=== PATIENT | female | born 1950 | race Caucasian/White ===

== ENCOUNTER 2017-11-13 12:29 | Emergency (ER) | payer OTHER ==
[~2017-11-13] VITALS: Ht 167.6 cm; Wt 78.9 kg
[~2017-11-13 12:29] MED LIST: GABAPENTIN 100100 MG PO; METFORMIN HCL500 MG PO; PRAVACHOL20 MG PO; PREDNISONE 20 M20 MG PO; QUINAPRIL 20 MG20 MG PO; TYLENOL325 MG PO; VENTOLIN HFA 1818 GM INH; ZPAK PO
[2017-11-13 13:19] LABS: URINE BILIRUBIN NEGATIVE (Negative); URINE BLOOD NEGATIVE (Negative); URINE CLARITY CLEAR; URINE COLOR YELLOW; URINE GLUCOSE-RANDOM NEGATIVE (Negative); URINE KETONES NEGATIVE (Negative); URINE LEUKOCYTES-REFLEX NEGATIVE (Negative); URINE NITRITE-REFLEX NEGATIVE (Negative); URINE PROTEIN NEGATIVE (Negative); URINE SPECIFIC GRAVITY <= 1.005 (1.005-1.030); URINE UROBILINOGEN 0.2 E.U./dl (0.2-1.0)
[2017-11-13 13:22] LABS: ABSOLUTE BASOPHILS 0.1 thou/uL (0.0-0.2); ABSOLUTE EOSINOPHILS 0.1 thou/uL (0.0-0.7); ABSOLUTE LYMPHOCYTES 2.3 thou/uL (0.8-5.3); ABSOLUTE MONOCYTES 0.5 thou/uL (0.0-1.2); ABSOLUTE NEUTROPHILS 5.8 thou/uL (1.6-8.1); BASOPHILS 0.7 %; EOSINOPHILS 1.6 %; HEMATOCRIT 37.7 % (37.0-47.0); HEMOGLOBIN 12.7 gm/dL (12.0-15.0); LYMPHOCYTES 25.7 %; MCH 31.8 pg (26.0-34.0); MCHC 33.7 g/dL (28.0-37.0); MCV 94.6 fL (80.0-100.0); MONOCYTES 6.2 %; NUCLEATED RBCS 0 /100WBC; PLATELET COUNT* 204 thou/uL (150-400); POLYS 65.8 %; RBC 3.99 mil/uL (4.20-5.00); RDW-CV 13.5 % (10.5-14.5); WBC 8.8 thou/uL (4.0-11.0)
[2017-11-13 13:28] LABS: CREATININE 0.8 mg/dL (0.6-1.3); POTASSIUM 3.3 mmol/L (3.5-5.1)
[2017-11-13 13:31] LABS: INFLUENZA A ANTIGEN None Detected (None Detect); INFLUENZA B ANTIGEN None Detected (None Detect)
[2017-11-13 13:33] LABS: ALBUMIN 3.6 g/dL (3.4-5.0); TOTAL BILIRUBIN 0.4 mg/dL (<0.1-1.0); TOTAL PROTEIN 6.9 g/dL (6.4-8.2)
[2017-11-13 14:31] LABS: TROPONIN-I LEVEL <0.06 ng/mL (<0.06)
[2017-11-13 14:32] LABS: AMP/METHAMP Negative (Negative); BARBITURATES Negative (Negative); BENZODIAZEPINES Negative (Negative); COCAINE Negative (Negative); METHADONE Negative (Negative); OPIATES Negative (Negative); PCP Negative (Negative); THC POSITIVE (Negative)
[2017-11-13 15:45] VITALS: BP 133/52
--- NOTE | 2017-11-14 13:36 | EKG ---
[place] [address] ELECTROCARDIOGRAM REPORT Name: VIRA OCASIO Room: [facility]#: [id number] Admission: 11/13/17 Attend Phys: Discharge: 11/13/17 Date of : 46 Report #: [id number] THIS REPORT FOR: //name// [facility] ED Test Date: 2017-11-13 Test Time: 13:30:09 Pat Name: VIRA OCASIO Department: Room: Gender: F Powder Carrier: Gerson KHAN : 1950 Requested By: Emily Velez Order Number: [id number] MD: Juan Johnston Measurements Intervals [place] Rate: 61 P: 39 [place]: 194 QRS: 6 QRSD: 93 T: 33 QT: 436 QTc: 440 Interpretive Statements Sinus rhythm Compared to ECG 02/10/2017 14:01:04 No significant changes Electronically Signed On 11-14-2017 13:36:04 PROPERTY INSPECTOR by Juan Johnston [email or web address] <ELECTRONICALLY SIGNED> By: Juan Johnston MD, [facility] 11/14/17 1336 1330 1330 Juan Johnston MD, FACC /EPI
== END 2017-11-13 15:48 | disposition home or self-care (01) ==
LOC: M.ERS 12:29
PROVIDERS: Nurse Practitioner
DX: D32.9 Benign neoplasm of meninges, unspecified (principal); J44.9 Chronic obstructive pulmonary disease, unspecified; E11.9 Type 2 diabetes mellitus without complications; M19.90 Unspecified osteoarthritis, unspecified site; F17.210 Nicotine dependence, cigarettes, uncomplicated; Z88.6 Allergy status to analgesic agent

== ENCOUNTER 2017-12-04 09:32 | Emergency (ER) | payer OTHER ==
[~2017-12-04] VITALS: Ht 167.6 cm; Wt 78.2 kg
[2017-12-04 10:14] LABS: ABSOLUTE EOSINOPHILS 0.1 thou/uL (0.0-0.7); ABSOLUTE MONOCYTES 0.5 thou/uL (0.0-1.2); ABSOLUTE NEUTROPHILS 2.9 thou/uL (1.6-8.1); EOSINOPHILS 1.2 %; HEMATOCRIT 40.2 % (37.0-47.0); HEMOGLOBIN 13.7 gm/dL (12.0-15.0); LYMPHOCYTES 21.1 %; MCH 31.6 pg (26.0-34.0); MCV 92.9 fL (80.0-100.0); MPV 8.5 fl. (7.2-11.1); NUCLEATED RBCS 0 /100WBC; PLATELET COUNT* 184 thou/uL (150-400); POLYS 64.7 %; RBC 4.33 mil/uL (4.20-5.00); RDW-CV 13.4 % (10.5-14.5); WBC 4.5 thou/uL (4.0-11.0)
[2017-12-04 10:21] LABS: CALCIUM 8.6 mg/dL (8.5-10.1); CREATININE 0.8 mg/dL (0.6-1.3); POTASSIUM 3.4 mmol/L (3.5-5.1)
[2017-12-04 10:25] LABS: ALBUMIN 3.6 g/dL (3.4-5.0); TOTAL BILIRUBIN 0.4 mg/dL (<0.1-1.0); TOTAL PROTEIN 7.1 g/dL (6.4-8.2)
[2017-12-04 10:50] LABS: URINE BILIRUBIN NEGATIVE (Negative); URINE BLOOD 1+ (Negative); URINE CLARITY CLEAR; URINE COLOR YELLOW; URINE GLUCOSE-RANDOM NEGATIVE (Negative); URINE KETONES NEGATIVE (Negative); URINE LEUKOCYTES-REFLEX NEGATIVE (Negative); URINE NITRITE-REFLEX NEGATIVE (Negative); URINE PROTEIN NEGATIVE (Negative); URINE UROBILINOGEN 0.2 E.U./dl (0.2-1.0)
[2017-12-04] MEDS ORDERED: ZOFRAN ODT4 MG PO ×2 (11:05→11:34)
[2017-12-04] MEDS ORDERED: KLOR-CON 1010 MEQ PO ×2 (11:05→11:34)
[2017-12-04 11:08] LABS: MUCUS 0-3 Light strn/LPF (None Seen); SQUAMOUS >10 Many /LPF (0-3)
[2017-12-04 11:09] LABS: AMORPHOUS URATES Few /LPF (None Seen); CASTS None Seen /LPF (None Seen); URINE RBC 3-10 Few /HPF (0-2); URINE WBC-REFLEX 0-5 Rare /HPF (0-5)
[2017-12-04 11:29] VITALS: BP 144/62
== END 2017-12-04 11:29 | disposition home or self-care (01) ==
LOC: M.ERS 09:32
PROVIDERS: Nurse Practitioner Psychiatric/Mental Health
DX: R19.7 Diarrhea, unspecified (principal); E87.6 Hypokalemia; R11.0 Nausea; R53.1 Weakness; J44.9 Chronic obstructive pulmonary disease, unspecified; E11.9 Type 2 diabetes mellitus without complications; M19.90 Unspecified osteoarthritis, unspecified site; I10 Essential (primary) hypertension; E78.00 Pure hypercholesterolemia, unspecified; Z88.8 Allergy status to other drugs, medicaments and biological substances

== ENCOUNTER 2018-01-12 08:20 | Emergency (ER) | payer OTHER ==
[~2018-01-12] VITALS: Ht 167.6 cm; Wt 78.9 kg
[~2018-01-12 08:20] MED LIST changes: +KLOR-CON 1010 MEQ PO; +ZOFRAN ODT4 MG PO
[2018-01-12 09:34] LABS: INFLUENZA A ANTIGEN None Detected (None Detect); INFLUENZA B ANTIGEN None Detected (None Detect)
[2018-01-12 09:35] LABS: ABSOLUTE BASOPHILS 0.1 thou/uL (0.0-0.2); ABSOLUTE EOSINOPHILS 0.1 thou/uL (0.0-0.7); ABSOLUTE LYMPHOCYTES 1.5 thou/uL (0.8-5.3); ABSOLUTE MONOCYTES 0.5 thou/uL (0.0-1.2); ABSOLUTE NEUTROPHILS 10.5 thou/uL (1.6-8.1); BASOPHILS 0.8 %; EOSINOPHILS 0.7 %; HEMATOCRIT 40.5 % (37.0-47.0); HEMOGLOBIN 13.7 gm/dL (12.0-15.0); LYMPHOCYTES 11.5 %; MCH 30.8 pg (26.0-34.0); MCHC 33.8 g/dL (28.0-37.0); MCV 91.2 fL (80.0-100.0); MONOCYTES 4.2 %; MPV 8.5 fl. (7.2-11.1); NUCLEATED RBCS 0 /100WBC; PLATELET COUNT* 230 thou/uL (150-400); POLYS 82.8 %; RBC 4.44 mil/uL (4.20-5.00); RDW-CV 13.6 % (10.5-14.5); WBC 12.7 thou/uL (4.0-11.0)
[2018-01-12 09:43] LABS: CALCIUM 9.1 mg/dL (8.5-10.1); CREATININE 0.8 mg/dL (0.6-1.3); POTASSIUM 3.8 mmol/L (3.5-5.1)
[2018-01-12 09:47] LABS: ALBUMIN 3.4 g/dL (3.4-5.0); TOTAL BILIRUBIN 0.7 mg/dL (<0.1-1.0); TOTAL PROTEIN 7.1 g/dL (6.4-8.2)
[2018-01-12] MEDS ORDERED: PREDNISONE50 MG PO (10:00)
[2018-01-12] MEDS ORDERED: PROAIR HFA8.5 GM PO (10:00)
[2018-01-12] MEDS ORDERED: AMOXICILLIN875 MG PO (10:00)
[2018-01-12 10:12] VITALS: BP 160/63
== END 2018-01-12 10:13 | disposition home or self-care (01) ==
LOC: M.ERS 08:20
PROVIDERS: Personal Emergency Response Attendant
DX: J18.9 Pneumonia, unspecified organism (principal); J44.9 Chronic obstructive pulmonary disease, unspecified; E11.9 Type 2 diabetes mellitus without complications; M19.90 Unspecified osteoarthritis, unspecified site; I10 Essential (primary) hypertension; E78.00 Pure hypercholesterolemia, unspecified; F17.210 Nicotine dependence, cigarettes, uncomplicated; Z88.6 Allergy status to analgesic agent

== ENCOUNTER 2018-03-16 11:04 | Emergency (ER) | payer OTHER ==
[~2018-03-16] VITALS: Ht 167.6 cm; Wt 74.4 kg
[~2018-03-16 11:04] MED LIST changes: +AMOXICILLIN875 MG PO; +PREDNISONE50 MG PO; +PROAIR HFA8.5 GM PO
[2018-03-16 11:48] LABS: ABSOLUTE EOSINOPHILS 0.1 thou/uL (0.0-0.7); ABSOLUTE LYMPHOCYTES 2.1 thou/uL (0.8-5.3); ABSOLUTE MONOCYTES 0.5 thou/uL (0.0-1.2); ABSOLUTE NEUTROPHILS 6.1 thou/uL (1.6-8.1); BASOPHILS 0.4 %; EOSINOPHILS 1.7 %; HEMATOCRIT 39.7 % (37.0-47.0); HEMOGLOBIN 13.5 gm/dL (12.0-15.0); LYMPHOCYTES 23.8 %; MCV 91.4 fL (80.0-100.0); MONOCYTES 5.9 %; MPV 8.7 fl. (7.2-11.1); NUCLEATED RBCS 0 /100WBC; PLATELET COUNT* 213 thou/uL (150-400); POLYS 68.2 %; RBC 4.35 mil/uL (4.20-5.00); RDW-CV 13.3 % (10.5-14.5); WBC 8.9 thou/uL (4.0-11.0)
[2018-03-16 12:01] LABS: ANION GAP 11 mmol/L (7-16); BUN 18 mg/dL (7-18); CALCIUM 9.4 mg/dL (8.5-10.1); CHLORIDE 106 mmol/L (98-107); CO2 24 mmol/L (21-32); CREATININE 0.9 mg/dL (0.6-1.3); GLUCOSE 166 mg/dL (70-99); POTASSIUM 3.2 mmol/L (3.5-5.1); SODIUM 141 mmol/L (136-145)
[2018-03-16 12:08] LABS: ALBUMIN 3.8 g/dL (3.4-5.0); ALKALINE PHOSPHATASE 71 U/L (46-116); SGOT 17 U/L (15-37); SGPT 18 U/L (30-65); TOTAL BILIRUBIN 0.7 mg/dL (<0.1-1.0); TROPONIN-I LEVEL <0.06 ng/mL (<0.06)
[2018-03-16] MEDS ORDERED: ALBUTEROL2.5 MG/31 INH (12:56)
[2018-03-16] MEDS ORDERED: CEFUROXIME500 MG PO (12:56)
[2018-03-16] MEDS ORDERED: PREDNISONE 20 M20 M1 PO (12:56)
[2018-03-16 13:09] VITALS: BP 133/68
--- NOTE | 2018-03-18 09:37 | EKG ---
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: HAY : 1950 Requested By: Coleen Gonzales Order Number: [id number] MD: Kwesi Lieberman Measurements Intervals [place] Rate: 58 P: 16 [place]: 192 QRS: 49 QRSD: 108 T: 1 QT: 441 QTc: 434 Interpretive Statements Sinus rhythm Borderline low voltage, extremity leads septal infarct, old Compared to ECG 11/13/2017 13:30:09 Myocardial infarct finding now present Electronically Signed On 03-18-2018 9:37:32 CDT by Kwesi Lieberman [email or web address] <ELECTRONICALLY SIGNED> By: Kwesi Lieberman MD, [facility] 03/18/18 0937 112 26 Kwesi Lieberman MD, [facility] /EPI
== END 2018-03-16 13:09 | disposition home or self-care (01) ==
LOC: M.ERS 11:04
PROVIDERS: Nurse Practitioner Family
DX: J42 Unspecified chronic bronchitis (principal); E11.9 Type 2 diabetes mellitus without complications; M19.90 Unspecified osteoarthritis, unspecified site; I10 Essential (primary) hypertension; E78.00 Pure hypercholesterolemia, unspecified; F17.210 Nicotine dependence, cigarettes, uncomplicated; Z88.6 Allergy status to analgesic agent

== ENCOUNTER 2018-05-22 10:28 | Emergency (ER) | payer OTHER ==
[~2018-05-22] VITALS: Ht 167.6 cm; Wt 77.1 kg
[~2018-05-22 10:28] MED LIST changes: +ALBUTEROL2.5 MG/31 INH; +CEFUROXIME500 MG PO; +PREDNISONE 20 M20 M1 PO
[2018-05-22] MEDS ORDERED: CELEXA10 MG PO (10:31)
[2018-05-22 10:56] LABS: ABSOLUTE EOSINOPHILS 0.1 thou/uL (0.0-0.7); ABSOLUTE LYMPHOCYTES 1.7 thou/uL (0.8-5.3); ABSOLUTE MONOCYTES 0.4 thou/uL (0.0-1.2); ABSOLUTE NEUTROPHILS 4.9 thou/uL (1.6-8.1); BASOPHILS 0.5 %; EOSINOPHILS 1.5 %; HEMATOCRIT 37.6 % (37.0-47.0); HEMOGLOBIN 12.9 gm/dL (12.0-15.0); LYMPHOCYTES 23.8 %; MCH 32.2 pg (26.0-34.0); MCHC 34.4 g/dL (28.0-37.0); MCV 93.7 fL (80.0-100.0); MONOCYTES 6.3 %; MPV 8.7 fl. (7.2-11.1); NUCLEATED RBCS 0 /100WBC; PLATELET COUNT* 187 thou/uL (150-400); POLYS 67.9 %; RBC 4.01 mil/uL (4.20-5.00); RDW-CV 13.3 % (10.5-14.5); WBC 7.2 thou/uL (4.0-11.0)
[2018-05-22 11:02] LABS: ANION GAP 9 mmol/L (7-16); BUN 13 mg/dL (7-18); CALCIUM 8.4 mg/dL (8.5-10.1); CHLORIDE 108 mmol/L (98-107); CO2 22 mmol/L (21-32); CREATININE 0.8 mg/dL (0.6-1.3); GLUCOSE 134 mg/dL (70-99); POTASSIUM 3.5 mmol/L (3.5-5.1); SODIUM 139 mmol/L (136-145)
[2018-05-22 11:08] LABS: ALKALINE PHOSPHATASE 65 U/L (46-116); LIPASE 158 U/L (73-393); SGOT 16 U/L (15-37); SGPT 14 U/L (30-65); TOTAL BILIRUBIN 0.7 mg/dL (<0.1-1.0); TOTAL PROTEIN 6.1 g/dL (6.4-8.2); TROPONIN-I LEVEL <0.06 ng/mL (<0.06)
[2018-05-22 12:15] LABS: URINE BILIRUBIN NEGATIVE (Negative); URINE BLOOD 1+ (Negative); URINE CLARITY CLEAR; URINE COLOR YELLOW; URINE GLUCOSE-RANDOM NEGATIVE (Negative); URINE KETONES NEGATIVE (Negative); URINE LEUKOCYTES-REFLEX NEGATIVE (Negative); URINE NITRITE-REFLEX NEGATIVE (Negative); URINE PROTEIN NEGATIVE (Negative); URINE UROBILINOGEN 0.2 E.U./dl (0.2-1.0)
[2018-05-22] MEDS ORDERED: ZOFRAN4 MG PO (12:21)
[2018-05-22 12:25] LABS: CASTS None Seen /LPF (None Seen); CRYSTALS None Seen /LPF (None Seen); MUCUS 4-6 Moderate strn/LPF (None Seen); SQUAMOUS >10 Many /LPF (0-3); URINE RBC 0-2 Rare /HPF (0-2); URINE WBC-REFLEX 0-5 Rare /HPF (0-5)
[2018-05-22 12:35] VITALS: BP 143/59
--- NOTE | 2018-05-22 15:03 | EKG ---
[place] [address] ELECTROCARDIOGRAM REPORT Name: VIRA OCASIO Room: 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: Gerson KHAN : 1950 Requested By: Coleen Gonzales Order Number: [id number] MD: Kwesi Lieberman Measurements Intervals [place] Rate: 56 P: 16 [place]: 192 QRS: 36 QRSD: 97 T: 7 QT: 449 QTc: 434 Interpretive Statements Sinus bradycardia Anterior infarct, old Compared to ECG 03/16/2018 11:27:24 No significant changes Electronically Signed On 05-22-2018 15:02:59 CDT by Kwesi Lieberman [email or web address] <ELECTRONICALLY SIGNED> By: Kwesi Lieberman MD, [facility] 05/22/18 1502 1033 1033 Kwesi Lieberman MD, FAC /EPI
== END 2018-05-22 12:36 | disposition home or self-care (01) ==
LOC: M.ERS 10:28
PROVIDERS: Nurse Practitioner Family
DX: J44.9 Chronic obstructive pulmonary disease, unspecified (principal); R19.7 Diarrhea, unspecified; R11.2 Nausea with vomiting, unspecified; E11.9 Type 2 diabetes mellitus without complications; M19.90 Unspecified osteoarthritis, unspecified site; I10 Essential (primary) hypertension; E78.00 Pure hypercholesterolemia, unspecified; F17.210 Nicotine dependence, cigarettes, uncomplicated; Z88.6 Allergy status to analgesic agent

== ENCOUNTER 2018-07-30 12:21 | Emergency (ER) | payer OTHER ==
[~2018-07-30] VITALS: Ht 167.6 cm; Wt 74.4 kg
[~2018-07-30 12:21] MED LIST changes: +CELEXA10 MG PO; +ZOFRAN4 MG PO
[2018-07-30 13:19] LABS: URINE BILIRUBIN NEGATIVE (Negative); URINE BLOOD TRACE (Negative); URINE CLARITY CLEAR; URINE COLOR YELLOW; URINE GLUCOSE-RANDOM NEGATIVE (Negative); URINE KETONES NEGATIVE (Negative); URINE LEUKOCYTES NEGATIVE (Negative); URINE NITRITE NEGATIVE (Negative); URINE PROTEIN NEGATIVE (Negative); URINE SPECIFIC GRAVITY <= 1.005 (1.005-1.030); URINE UROBILINOGEN 0.2 E.U./dl (0.2-1.0)
[2018-07-30 13:26] LABS: ABSOLUTE EOSINOPHILS 0.2 thou/uL (0.0-0.7); ABSOLUTE LYMPHOCYTES 1.8 thou/uL (0.8-5.3); ABSOLUTE MONOCYTES 0.5 thou/uL (0.0-1.2); ABSOLUTE NEUTROPHILS 4.5 thou/uL (1.6-8.1); BASOPHILS 0.7 %; EOSINOPHILS 3.3 %; HEMOGLOBIN 12.9 gm/dL (12.0-15.0); LYMPHOCYTES 25.3 %; MCH 31.9 pg (26.0-34.0); MCHC 33.9 g/dL (28.0-37.0); MONOCYTES 7.3 %; MPV 8.6 fl. (7.2-11.1); NUCLEATED RBCS 0 /100WBC; PLATELET COUNT* 208 thou/uL (150-400); POLYS 63.4 %; RBC 4.04 mil/uL (4.20-5.00); RDW-CV 13.1 % (10.5-14.5); WBC 7.1 thou/uL (4.0-11.0)
[2018-07-30 13:30] LABS: AMP/METHAMP Negative (Negative); BARBITURATES Negative (Negative); BENZODIAZEPINES Negative (Negative); COCAINE Negative (Negative); METHADONE Negative (Negative); OPIATES Negative (Negative); PCP Negative (Negative); THC POSITIVE (Negative)
[2018-07-30 13:35] LABS: ANION GAP 8 mmol/L (7-16); BUN 14 mg/dL (7-18); CALCIUM 9.2 mg/dL (8.5-10.1); CHLORIDE 107 mmol/L (98-107); CO2 27 mmol/L (21-32); CREATININE 0.9 mg/dL (0.6-1.3); GLUCOSE 104 mg/dL (70-99); POTASSIUM 3.4 mmol/L (3.5-5.1); SODIUM 142 mmol/L (136-145)
[2018-07-30 13:42] LABS: ALBUMIN 3.6 g/dL (3.4-5.0); ALKALINE PHOSPHATASE 67 U/L (46-116); LIPASE 144 U/L (73-393); SGOT 18 U/L (15-37); SGPT 20 U/L (30-65); TOTAL BILIRUBIN 0.5 mg/dL (<0.1-1.0); TOTAL PROTEIN 6.8 g/dL (6.4-8.2); TROPONIN-I LEVEL <0.06 ng/mL (<0.06)
[2018-07-30] MEDS ORDERED: PHENERGAN 25 MG25 M1 PO (14:09)
--- NOTE | 2018-07-30 14:22 | EKG ---
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
[2018-07-30 14:36] VITALS: BP 147/61
== END 2018-07-30 14:36 | disposition home or self-care (01) ==
LOC: M.ERS 12:21
PROVIDERS: Nurse Practitioner Family
DX: R53.1 Weakness (principal); R11.2 Nausea with vomiting, unspecified; R42 Dizziness and giddiness; E11.9 Type 2 diabetes mellitus without complications; M19.90 Unspecified osteoarthritis, unspecified site; I10 Essential (primary) hypertension; E78.00 Pure hypercholesterolemia, unspecified; J44.9 Chronic obstructive pulmonary disease, unspecified; F17.210 Nicotine dependence, cigarettes, uncomplicated; Z88.6 Allergy status to analgesic agent; Z79.899 Other long term (current) drug therapy

== ENCOUNTER → 2019-02-16 | Outpatient (CLI) | payer OTHER ==
[~2019-02-16] MED LIST changes: +PHENERGAN 25 MG25 M1 PO
== END ==
LOC: M.ULTRA 12:00
DX: I80.02 Phlebitis and thrombophlebitis of superficial vessels of left lower extremity (principal)

== ENCOUNTER → 2019-03-20 | Outpatient (CLI) | payer OTHER | LOC: M.ULTRA 13:30 | DX: M79.661 Pain in right lower leg (principal); M79.662 Pain in left lower leg; R60.0 Localized edema ==

== ENCOUNTER 2020-07-25 23:22 | Inpatient (IN) | payer OTHER ==
[~2020-07-25] VITALS: Ht 167.6 cm; Wt 78.3 kg
--- NOTE | ~2020-07-25 | PROC ---
[facility] [address] [place] [address] PROCEDURE REPORT Name: VIRA OCASIO Room: [address] IN ..#: [id number] Admission: 07/26/20 Attend Phys: Surinder Rowan MD Discharge: Date of : 46 Report #: [id number] THIS REPORT FOR: //name// cc: Nely Christiansen MD, Katrina MD ~ THIS REPORT FOR: //name// For GI report, please see the Provation report in Perceptive 7 content. By: 1324Medical Records Staff LARRY /ALMA
[2020-07-25 23:23] VITALS: BP 155/71
[2020-07-25 23:48] LABS: ABSOLUTE BASOPHILS 0.1 thou/uL (0.0-0.2); ABSOLUTE EOSINOPHILS 0.2 thou/uL (0.0-0.7); ABSOLUTE MONOCYTES 0.8 thou/uL (0.0-1.2); ABSOLUTE NEUTROPHILS 7.5 thou/uL (1.6-8.1); BASOPHILS 0.9 %; EOSINOPHILS 1.4 %; HEMATOCRIT 22.5 % (37.0-47.0); HEMOGLOBIN 7.7 gm/dL (12.0-15.0); LYMPHOCYTES 26.1 %; MCHC 34.2 g/dL (28.0-37.0); MCV 93.6 fL (80.0-100.0); MONOCYTES 6.9 %; MPV 7.8 fl. (7.2-11.1); NUCLEATED RBCS 0 /100WBC; PLATELET COUNT* 254 thou/uL (150-400); POLYS 64.7 %; WBC 11.6 thou/uL (4.0-11.0)
[2020-07-25 23:51] LABS: POTASSIUM 4.1 mmol/L (3.5-5.1)
[2020-07-25 23:52] LABS: APTT 24.5 Seconds (25.0-31.3); INR 1.1; PROTIME 11.3 Seconds (9.20-11.50)
[2020-07-26] VITALS (8 sets, daily range): BP systolic 100–140; BP diastolic 42–65
[2020-07-26 00:02] LABS: ALBUMIN 2.8 g/dL (3.4-5.0); TOTAL BILIRUBIN 0.3 mg/dL (<0.1-1.0); TOTAL PROTEIN 5.1 g/dL (6.4-8.2)
[2020-07-26 02:27] LABS: HEMATOCRIT 20.1 % (37.0-47.0)
[2020-07-26 02:28] LABS: HEMOGLOBIN 6.8 gm/dL (12.0-15.0)
[2020-07-26] MEDS ORDERED: CELEXA 20 MG TA20 MG PO (05:35)
[2020-07-26] MEDS ORDERED: POTASSIUM GLUCO99 M2 PO (05:36)
[2020-07-26] MEDS ORDERED: CALCIUM + VITA1 EACH PO (05:36)
[2020-07-26] MEDS ORDERED: VITAMIN B (05:37)
[2020-07-26 07:17] LABS: HEMATOCRIT 24.5 % (37.0-47.0); HEMOGLOBIN 8.5 gm/dL (12.0-15.0)
--- NOTE | 2020-07-26 09:42 | EKG ---
[place] [address] ELECTROCARDIOGRAM REPORT Name: VIRA OCASIO Room: [address] ADM IN M.R.#: [id number] Admission: 07/26/20 Attend Phys: uSrinder Rowan, Discharge: Date of : 46 Date of Service: 07/26/20 0008 Report #: [id number] THIS REPORT FOR: //name// [facility] ED Test Date: 2020-07-26 Test Time: 00:08:23 Pat Name: VIRA OCASIO Department: Room: [address] Gender: F Service Bar Cashier: NICKOLAS : 1950 Requested By: Bubba Chan Order Number: [id number] MD: Kwesi Lieberman Measurements Intervals [place] Rate: 91 P: 85 CT: 172 QRS: 50 QRSD: 92 T: 61 QT: 366 QTc: 451 Interpretive Statements Sinus rhythm Low voltage, extremity leads Minimal ST depression, lateral leads Compared to ECG 07/30/2018 13:10:42 Low QRS voltage now present Sinus bradycardia no longer present Myocardial infarct finding no longer present Electronically Signed On 07-26-2020 9:42:33 CDT by Kwesi Lieberman [email or web address] <ELECTRONICALLY SIGNED> By: Kwesi Lieberman MD, FACC 07/26/20 0942 Kwesi Lieberman MD, FACC /EPI
[2020-07-26 18:07] LABS: ABSOLUTE MONOCYTES 1.3 thou/uL (0.0-1.2); ABSOLUTE NEUTROPHILS 13.9 thou/uL (1.6-8.1); BASOPHILS 0.1 %; HEMATOCRIT 18.5 % (37.0-47.0); LYMPHOCYTES 11.8 %; MCH 32.2 pg (26.0-34.0); MCHC 34.6 g/dL (28.0-37.0); MCV 93.1 fL (80.0-100.0); MONOCYTES 7.7 %; MPV 7.8 fl. (7.2-11.1); NUCLEATED RBCS 0 /100WBC; PLATELET COUNT* 201 thou/uL (150-400); POLYS 80.4 %; RBC 1.99 mil/uL (4.20-5.00); RDW-CV 13.6 % (10.5-14.5); WBC 17.3 thou/uL (4.0-11.0)
[2020-07-26 18:08] LABS: HEMOGLOBIN 6.4 gm/dL (12.0-15.0)
[2020-07-26 18:13] LABS: CALCIUM 8.3 mg/dL (8.5-10.1); CREATININE 1.1 mg/dL (0.6-1.3); POTASSIUM 4.1 mmol/L (3.5-5.1)
[2020-07-27] VITALS (7 sets, daily range): BP systolic 96–122; BP diastolic 39–74
[2020-07-27 02:19] LABS: HEMATOCRIT 23.4 % (37.0-47.0); HEMOGLOBIN 8.1 gm/dL (12.0-15.0)
[2020-07-27 02:25] LABS: ABSOLUTE BASOPHILS 0.1 thou/uL (0.0-0.2); ABSOLUTE LYMPHOCYTES 4.2 thou/uL (0.8-5.3); ABSOLUTE MONOCYTES 1.4 thou/uL (0.0-1.2); ABSOLUTE NEUTROPHILS 12.2 thou/uL (1.6-8.1); BASOPHILS 0.6 %; EOSINOPHILS 0.2 %; HEMATOCRIT 23.3 % (37.0-47.0); HEMOGLOBIN 8.1 gm/dL (12.0-15.0); LYMPHOCYTES 23.5 %; MCH 31.9 pg (26.0-34.0); MCHC 34.6 g/dL (28.0-37.0); MONOCYTES 7.7 %; MPV 8.1 fl. (7.2-11.1); NUCLEATED RBCS 0 /100WBC; PLATELET COUNT* 199 thou/uL (150-400); RBC 2.53 mil/uL (4.20-5.00)
[2020-07-27 02:28] LABS: CALCIUM 8.6 mg/dL (8.5-10.1); MAGNESIUM 1.7 mg/dL (1.8-2.4); POTASSIUM 4.1 mmol/L (3.5-5.1)
[2020-07-27 14:30] LABS: HEMOGLOBIN 6.8 gm/dL (12.0-15.0)
[2020-07-27] MEDS ORDERED: CARAFATE 1 GM TA1 G1 PO (16:43)
[2020-07-27] MEDS ORDERED: PROTONIX40 M2 PO (16:43)
[2020-07-27 22:45] LABS: HEMATOCRIT 24.6 % (37.0-47.0); HEMOGLOBIN 8.5 gm/dL (12.0-15.0)
[2020-07-28] VITALS: BP 104/50
[2020-07-28 07:50] VITALS: BP 133/51
[2020-07-28 08:57] LABS: ABSOLUTE BASOPHILS 0.1 thou/uL (0.0-0.2); ABSOLUTE EOSINOPHILS 0.2 thou/uL (0.0-0.7); ABSOLUTE LYMPHOCYTES 3.2 thou/uL (0.8-5.3); ABSOLUTE MONOCYTES 0.7 thou/uL (0.0-1.2); ABSOLUTE NEUTROPHILS 5.2 thou/uL (1.6-8.1); BASOPHILS 1.2 %; EOSINOPHILS 2.5 %; HEMATOCRIT 24.8 % (37.0-47.0); HEMOGLOBIN 8.8 gm/dL (12.0-15.0); LYMPHOCYTES 33.9 %; MCH 32.4 pg (26.0-34.0); MCHC 35.5 g/dL (28.0-37.0); MCV 91.3 fL (80.0-100.0); MONOCYTES 7.5 %; MPV 8.1 fl. (7.2-11.1); NUCLEATED RBCS 0 /100WBC; PLATELET COUNT* 182 thou/uL (150-400); POLYS 54.9 %; RBC 2.72 mil/uL (4.20-5.00); RDW-CV 14.9 % (10.5-14.5); WBC 9.5 thou/uL (4.0-11.0)
[2020-07-28 09:18] LABS: CALCIUM 8.3 mg/dL (8.5-10.1); CREATININE 0.8 mg/dL (0.6-1.3); POTASSIUM 3.8 mmol/L (3.5-5.1)
[2020-07-28 12:08] VITALS: BP 122/57
--- NOTE | 2020-07-28 15:07 | PATH ---
[address] [address] PATHOLOGY RPT PROCEDURE Name: MARILOU LASSITER Room: [address] IN .R.#: [id number] Admission: 07/26/20 Date of : 46 Discharge: Report #: [id number] Path Case #: [id number] [facility] Accession Number: [id number] . 01 Material submitted: . stomach - ANTRAL BIOPSY FOR H-PYLORI AND DUODENAL ULCER . 01 Clinician provided ICD-10: K92.2 . 01 Clinical history: . GI BLEED, ANEMIA . 02 Diagnosis: Antral biopsy: - Mild nonspecific chronic antral gastritis, negative for Helicobacter pylori organisms, granulomas and dysplasia. . (AGA:[facility]; 07/28/2020) [facility] 07/28/2020 1138 Local . 02 Comment: H. pylori immuno. . (AGA:[facility]; 07/28/2020) . 02 Electronically signed: . Temo Cross MD, Pathologist NPI- [id number] . 01 Gross description: . The specimen is received in formalin, labeled "Marilou Lassiter, antral biopsy for H. pylori and duodenal ulcer". Received is a segment of pale de oliveira soft tissue measuring 0.4 cm in maximum dimensions. The specimen is submitted entirely in cassette A1. ([facility]; 07/27/2020) QAC/QAC 07/27/2020 1537 Local . 02 Pathologist provided ICD-10: K29.50 . 02 CPT . 788146, C27297 Specimen Comment: A courtesy copy of this report has been sent to [phone] Specimen Comment: [phone] Specimen Comment: Report sent to DR COKER / DR AGRAWAL Performed at: [address] [place] [address] PATHOLOGY RPT PROCEDURE Name: AMARJITMARILOU Stefany Room: [address]#: [id number] Admission: 07/26/20 Date of : 46 Discharge: Report #: [id number] Path Case #: [id number] [facility] [address] [id number] MD Amilcar Xiong MD Phone: [phone] Performed at: [address] , [place], [place] [id number] MD Temo Cross MD Phone: [phone]
[2020-07-28 17:25] VITALS: BP 136/62
[2020-07-28 20:00] VITALS: BP 112/64
[2020-07-29] VITALS: BP 112/46
[2020-07-29 04:00] VITALS: BP 121/59
[2020-07-29 05:11] LABS: HEMATOCRIT 26.2 % (37.0-47.0); HEMOGLOBIN 9.2 gm/dL (12.0-15.0); MCH 32.4 pg (26.0-34.0); MCHC 35.2 g/dL (28.0-37.0); MCV 92.1 fL (80.0-100.0); MPV 8.2 fl. (7.2-11.1); RBC 2.85 mil/uL (4.20-5.00); RDW-CV 14.9 % (10.5-14.5); WBC 10.6 thou/uL (4.0-11.0)
[2020-07-29 05:45] LABS: CALCIUM 8.8 mg/dL (8.5-10.1); CREATININE 0.9 mg/dL (0.6-1.3); POTASSIUM 3.5 mmol/L (3.5-5.1)
[2020-07-29 08:00] VITALS: BP 133/65
[2020-07-29] MEDS ORDERED: PROTONIX40 M2 PO (08:25)
[2020-07-29] MEDS ORDERED: CARAFATE 11 GM/10 M1 PO (08:25)
[2020-07-29 09:33] VITALS: BP 133/65
[2020-07-29 10:43] VITALS: BP 133/65
== END 2020-07-29 10:40 | disposition home or self-care (01) | DRG 378 ==
LOC: M.ERS 23:22 → M.2W 07-26 00:57 → M.TBA-ER 07-26 00:57 → M.2W 07-26 02:03
PROVIDERS: Family Medicine; Internal Medicine; Internal Medicine Gastroenterology; Nurse Practitioner Adult Health; ADMIT Internal Medicine; ATTEND Internal Medicine
PROC: 30233N1 Transfusion of Nonautologous Red Blood Cells into Peripheral Vein, Percutaneous Approach (ICD-10-PCS; principal; 2020-07-26)
PROC: 0D598ZZ Destruction of Duodenum, Via Natural or Artificial Opening Endoscopic (ICD-10-PCS; principal; 2020-07-26)
PROC: 0DB78ZX Excision of Stomach, Pylorus, Via Natural or Artificial Opening Endoscopic, Diagnostic (ICD-10-PCS; principal; 2020-07-26)
DX: K26.4 Chronic or unspecified duodenal ulcer with hemorrhage (principal); E44.0 Moderate protein-calorie malnutrition; J44.1 Chronic obstructive pulmonary disease with (acute) exacerbation; Z60.2 Problems related to living alone; K92.1 Melena; Z20.828 Contact with and (suspected) exposure to other viral communicable diseases; E11.9 Type 2 diabetes mellitus without complications; M19.90 Unspecified osteoarthritis, unspecified site; I10 Essential (primary) hypertension; D64.9 Anemia, unspecified; K29.50 Unspecified chronic gastritis without bleeding; F17.210 Nicotine dependence, cigarettes, uncomplicated; F12.90 Cannabis use, unspecified, uncomplicated; K44.9 Diaphragmatic hernia without obstruction or gangrene; Z98.49 Cataract extraction status, unspecified eye; Z88.6 Allergy status to analgesic agent; Z83.3 Family history of diabetes mellitus; Z82.49 Family history of ischemic heart disease and other diseases of the circulatory system; Z90.49 Acquired absence of other specified parts of digestive tract; Z28.21 Immunization not carried out because of patient refusal

== ENCOUNTER 2021-10-10 18:55 | Inpatient (IN) | payer OTHER ==
[~2021-10-10] VITALS: Ht 167.6 cm; Wt 80.7 kg
[~2021-10-10 18:55] MED LIST changes: +CALCIUM + VITA1 EACH PO; +CARAFATE 1 GM TA1 G1 PO; +CARAFATE 11 GM/10 M1 PO; +CELEXA 20 MG TA20 MG PO; +POTASSIUM GLUCO99 M2 PO; +PROTONIX40 M2 PO; +VITAMIN B
[2021-10-10 19:01] VITALS: BP 116/56
[2021-10-10 19:40] LABS: HEMOGLOBIN 12.3 gm/dL (12.0-15.0); MCV 96.1 fL (80.0-100.0); MPV 7.8 fl. (7.2-11.1)
[2021-10-10 19:42] LABS: ABSOLUTE EOSINOPHILS 0.1 thou/uL (0.0-0.7); ABSOLUTE NEUTROPHILS 11.8 thou/uL (1.6-8.1); BASOPHILS 0.3 %; EOSINOPHILS 0.5 %; LYMPHOCYTES 7.4 %; MCHC 33.3 g/dL (28.0-37.0); MONOCYTES 7.3 %; NUCLEATED RBCS 0 /100WBC; PLATELET COUNT* 261 thou/uL (150-400); POLYS 84.5 %; RBC 3.86 mil/uL (4.20-5.00)
[2021-10-10 19:47] LABS: CALCIUM 8.6 mg/dL (8.5-10.1); POTASSIUM 4.1 mmol/L (3.5-5.1)
[2021-10-10 19:58] LABS: ALBUMIN 3.1 g/dL (3.4-5.0); TOTAL BILIRUBIN 0.6 mg/dL (<0.1-1.0); TOTAL PROTEIN 6.6 g/dL (6.4-8.2)
[2021-10-10 21:05] LABS: INFLUENZA A ANTIGEN Negative (Negative); INFLUENZA B ANTIGEN Negative (Negative)
[2021-10-10 22:40] LABS: URINE BILIRUBIN NEGATIVE (Negative); URINE BLOOD TRACE (Negative); URINE CLARITY CLEAR; URINE COLOR STRAW; URINE GLUCOSE-RANDOM NEGATIVE (Negative); URINE KETONES NEGATIVE (Negative); URINE LEUKOCYTES-REFLEX NEGATIVE (Negative); URINE NITRITE-REFLEX NEGATIVE (Negative); URINE PROTEIN NEGATIVE (Negative); URINE SPECIFIC GRAVITY <= 1.005 (1.005-1.030); URINE UROBILINOGEN 0.2 E.U./dl (0.2-1.0)
[2021-10-11 01:20] VITALS: BP 118/58
[2021-10-11 05:36] VITALS: BP 139/62
[2021-10-11 09:35] VITALS: BP 144/63
--- NOTE | 2021-10-11 10:21 | EKG ---
[place] [address] ELECTROCARDIOGRAM REPORT Name: VIRA OCASIO Room: [place] [address] ADM IN ..#: [id number] Admission: 10/10/21 Attend Phys: Hema Moran, Discharge: Date of : 46 Date of Service: 10/10/21 1855 Report #: [id number] THIS REPORT FOR: //name// [facility] ED Test Date: 2021-10-10 Test Time: 18:55:50 Pat Name: VIRA OCASIO Department: Room: [facility] Gender: F Salvage Determiner: DC : 1950 Requested By: Kimberly Cruz Order Number: [id number] MD: Kwesi Lieberman Measurements Intervals [place] Rate: 84 P: [place]: QRS: 25 QRSD: 105 T: 97 QT: 348 QTc: 412 Interpretive Statements sinus rhythm Consider anterior infarct Abnormal T, consider ischemia, lateral leads Compared to ECG 07/26/2020 00:08:23 Myocardial infarct finding now present Electronically Signed On 10-11-2021 10:21:41 CUSTOMER SERVICE MANAGER by Kwesi Lieberman [email or web address] <ELECTRONICALLY SIGNED> By: Kwesi Lieberman MD, [facility] 10/11/21 1021 1855 54 Kwesi Lieberman MD, [facility] /EPI
[2021-10-11 12:29] LABS: ABSOLUTE BASOPHILS 0.1 thou/uL (0.0-0.2); ABSOLUTE EOSINOPHILS 0.1 thou/uL (0.0-0.7); ABSOLUTE LYMPHOCYTES 1.5 thou/uL (0.8-5.3); ABSOLUTE MONOCYTES 1.4 thou/uL (0.0-1.2); ABSOLUTE NEUTROPHILS 13.7 thou/uL (1.6-8.1); BASOPHILS 0.4 %; EOSINOPHILS 0.3 %; HEMATOCRIT 40.1 % (37.0-47.0); HEMOGLOBIN 13.3 gm/dL (12.0-15.0); LYMPHOCYTES 9.2 %; MCH 31.8 pg (26.0-34.0); MCHC 33.2 g/dL (28.0-37.0); MONOCYTES 8.1 %; MPV 7.8 fl. (7.2-11.1); NUCLEATED RBCS 0 /100WBC; PLATELET COUNT* 289 thou/uL (150-400); RBC 4.18 mil/uL (4.20-5.00); WBC 16.7 thou/uL (4.0-11.0)
[2021-10-11 14:30] VITALS: BP 147/68
[2021-10-11 20:50] VITALS: BP 148/64
[2021-10-12] VITALS: BP 149/66
[2021-10-12 03:59] LABS: CALCIUM 9.1 mg/dL (8.5-10.1); CREATININE 0.9 mg/dL (0.6-1.3); TOTAL BILIRUBIN 0.7 mg/dL (<0.1-1.0); TOTAL PROTEIN 6.8 g/dL (6.4-8.2)
[2021-10-12 04:00] VITALS: BP 147/61
[2021-10-12 08:00] VITALS: BP 145/70
[2021-10-12 11:51] VITALS: BP 131/70
[2021-10-12 17:29] VITALS: BP 135/66
[2021-10-12 20:00] VITALS: BP 153/65
[2021-10-13] VITALS: BP 159/70
[2021-10-13 04:00] VITALS: BP 171/69
[2021-10-13 09:00] VITALS: BP 155/69
[2021-10-13 11:27] VITALS: BP 143/51
[2021-10-13] MEDS ORDERED: VITAMIN C1000 MG PO (12:40)
[2021-10-13] MEDS ORDERED: VITAMIN D325 MC2 PO (12:40)
[2021-10-13] MEDS ORDERED: CEFDINIR300 MG PO (12:40)
[2021-10-13 15:15] VITALS: BP 143/51
== END 2021-10-13 16:18 | disposition home health service (06) | DRG 604 ==
LOC: M.ERS 18:55 → M.TBA-ER 21:19 → M.ORTHSURG 21:19 → M.2W 10-13 07:45
PROVIDERS: Emergency Medicine; Internal Medicine; ADMIT Internal Medicine; ATTEND Internal Medicine
DX: S20.219A Contusion of unspecified front wall of thorax, initial encounter (principal); J15.9 Unspecified bacterial pneumonia; J44.1 Chronic obstructive pulmonary disease with (acute) exacerbation; E44.1 Mild protein-calorie malnutrition; J44.0 Chronic obstructive pulmonary disease with (acute) lower respiratory infection; J98.11 Atelectasis; R65.10 Systemic inflammatory response syndrome (SIRS) of non-infectious origin without acute organ dysfunction; I10 Essential (primary) hypertension; Z88.8 Allergy status to other drugs, medicaments and biological substances; F17.210 Nicotine dependence, cigarettes, uncomplicated; X58.XXXA Exposure to other specified factors, initial encounter; Y93.89 Activity, other specified; Y92.89 Other specified places as the place of occurrence of the external cause; Y99.8 Other external cause status; E11.9 Type 2 diabetes mellitus without complications; Z20.822 Contact with and (suspected) exposure to COVID-19